=== PATIENT | female | born 1980 ===

== ENCOUNTER 2018-03-28 09:49 | Emergency (ER) | payer MEDICAID ==
[2018-03-28 09:56] VITALS: BP 123/88; PULSE 96; RESP 20; TEMP 98.4; O2SAT 100
--- NOTE | 2018-03-28 12:13 | C.PDOC ---
History Of Present Illness 37 year old female presents to the ED for evaluation of headache which began around 3 days ago. Patient reports associated photophobia and phonophobia, She took Advil yesterday with minimal relief. She denies fever, change in vision, neck stiffness, or trauma. Time Seen by Provider: 03/28/18 10:03 Chief Complaint (Nursing): Headache History Per: Patient History/Exam Limitations: no limitations Onset/Duration Of Symptoms: Days (3) Current Symptoms Are (Timing): Still Present Quality: Aching Associated Symptoms: Photophobia. denies: Blurred Vision Additional History Per: Patient Past Medical History Reviewed: Historical Data, Nursing Documentation, Vital Signs Vital Signs: Last Vital Signs Temp 98.4 F 03/28/18 09:53 Pulse 96 H 03/28/18 09:53 Resp 20 03/28/18 09:53 BP 123/88 03/28/18 09:53 Pulse Ox 100 03/28/18 09:53 - Medical History PMH: No Chronic Diseases Surgical History: No Surg Hx Family History: States: Unknown Family Hx - Social History Hx Tobacco Use: No Hx Alcohol Use: No Hx Substance Use: No - Immunization History Hx Tetanus Toxoid Vaccination: No Hx Influenza Vaccination: Yes (03/04/2018) Hx Pneumococcal Vaccination: No Review Of Systems Constitutional: Negative for: Fever, Chills Eyes: Negative for: Vision Change ENT: Negative for: Other (neck stiffness ) Physical Exam - Physical Exam Appears: Non-toxic, No Acute Distress Skin: Normal Color, Warm, Dry Head: Atraumatic, Normacephalic Eye(s): bilateral: Normal Inspection, PERRL, EOMI Ear(s): Bilateral: Normal Nose: Normal, No Discharge Oral Mucosa: Moist Throat: Normal, No Erythema, No Exudate Neck: Normal ROM, Supple Chest: Symmetrical, No Deformity Cardiovascular: Rhythm Regular Respiratory: Normal Breath Sounds Extremity: Normal ROM, Capillary Refill (less than 2 seconds ) Neurological/Psych: Oriented x3, Normal Speech, Normal Cognition ED Course And Treatment O2 Sat by Pulse Oximetry: 100 (on RA) Pulse Ox Interpretation: Normal Medical Decision Making Medical Decision Making: Impression: 37 year old female with headache, photophobia, phonophobia Plan: * CT Head * Motrin PO * Reglan IM * reassess and disposition Progress: CT Head ordered. Motrin PO and Reglan IM given. Patient reports her symptoms have improved. Patient left the ED prior to CT being complete. Disposition - Disposition Disposition: ELOPEMENT - ER ONLY Disposition Time: 11:15 Condition: UNKNOWN Forms: [facility] (Turkmen) - Clinical Impression Clinical Impression: Headache - Scribe Statement The provider has reviewed the documentation as recorded by the Scribe (Ruby Freedman) Provider Attestation: All medical record entries made by the Scribe were at my direction and personally dictated by me. I have reviewed the chart and agree that the record accurately reflects my personal performance of the history, physical exam, medical decision making, and the department course for this patient. I have also personally directed, reviewed, and agree with the discharge instructions and disposition.
== END 2018-03-28 11:26 | disposition left against medical advice (07) ==
LOC: C.ER 09:49
DX: R51 Headache (principal)
CPT/HCPCS: 96372; 99283; J2765

== ENCOUNTER 2018-07-17 21:19 | Emergency (ER) | payer MEDICAID, OTHER ==
[2018-07-17 21:39] VITALS: BP 117/80; PULSE 74; RESP 16; TEMP 98.2; O2SAT 100
--- NOTE | 2018-07-17 22:31 | C.PDOC ---
History Of Present Illness 38 year old female states a few days ago she got out of bed and twisted her right hand. Patient had pain at that time, today while doing stuff at home she began having pain and swelling to the hand again. No other complaints. Time Seen by Provider: 07/17/18 21:35 Chief Complaint (Nursing): Finger,Hand,&Wrist History Per: Patient History/Exam Limitations: no limitations Onset/Duration Of Symptoms: Days Current Symptoms Are (Timing): Still Present Recent travel outside of the [place]: No Past Medical History Reviewed: Historical Data, Nursing Documentation, Vital Signs Vital Signs: Last Vital Signs Temp 98.2 F 07/17/18 21:31 Pulse 74 07/17/18 21:31 Resp 16 07/17/18 21:31 BP 117/80 07/17/18 21:31 Pulse Ox 100 07/17/18 21:31 - Medical History PMH: No Chronic Diseases Family History: States: Unknown Family Hx - Social History Hx Tobacco Use: No Hx Alcohol Use: No Hx Substance Use: No - Immunization History Hx Tetanus Toxoid Vaccination: No Hx Influenza Vaccination: Yes (03/04/2018) Hx Pneumococcal Vaccination: No Review Of Systems Musculoskeletal: Positive for: Hand Pain Skin: Negative for: Rash Neurological: Negative for: Weakness, Numbness Physical Exam - Physical Exam Appears: Well, Non-toxic, No Acute Distress Skin: Normal Color, Warm Head: Atraumatic, Normacephalic Eye(s): bilateral: Normal Inspection Extremity: Capillary Refill (<2 seconds), Other (Swelling and edema to dorsal right hand, no bony point tenderness, 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 Medical Decision Making Medical Decision Making: X-ray was negative, patient placed in delia and dc with hand sprain instructions. Disposition Counseled Patient/Family Regarding: Diagnosis, Need For Followup - Disposition Referrals: Stacia Stovall MD [Staff Provider] - Disposition: HOME/ ROUTINE Disposition Time: 21:30 Condition: STABLE Additional Instructions: Take Ibuprofen 600mg by mouth 3 times a day as needed for pain. Instructions: Hand Sprain (ED) Forms: [facility] (Moz[place]ican), General Discharge Instructions - Clinical Impression Clinical Impression: Sprain of hand, right - PA / MEDICAL DEVICE / Resident Statement MD/DO has reviewed & agrees with the documentation as recorded. - Scribe Statement The provider has reviewed the documentation as recorded by the Scribjuliane Abdi All medical record entries made by the Rejiibjuliane were at my direction and personally dictated by me. I have reviewed the chart and agree that the record accurately reflects my personal performance of the history, physical exam, medical decision making, and the department course for this patient. I have also personally directed, reviewed, and agree with the discharge instructions and disposition.
--- NOTE | 2018-07-18 11:14 | RAD ---
Date of service: 07/17/2018 PROCEDURE: Right Wrist Radiographs. HISTORY: injury COMPARISON: None. TECHNIQUE: 2 views obtained. FINDINGS: BONES: Normal. No fracture. JOINTS: Normal. No dislocation. SOFT TISSUES: Normal. OTHER FINDINGS: None. IMPRESSION: No acute displaced fracture or dislocation.
--- NOTE | 2018-07-18 11:15 | RAD ---
Date of service: 07/17/2018 PROCEDURE: Radiographs of the right hand HISTORY: Injury COMPARISON: None. FINDINGS: Three views were obtained BONES: Bone alignment and mineralization are normal. There is no acute displaced fracture or bone destruction. JOINTS: The joint spaces are preserved. SOFT TISSUES: Normal. OTHER FINDINGS: None. IMPRESSION: No acute displaced fracture or dislocation.
== END 2018-07-17 22:52 | disposition home or self-care (01) ==
LOC: C.ER 21:19
DX: S63.91XA Sprain of unspecified part of right wrist and hand, initial encounter (principal); X50.9XXA Other and unspecified overexertion or strenuous movements or postures, initial encounter